=== PATIENT | female | born 1940 | race Caucasian/White ===

== ENCOUNTER → 2017-02-23 | Outpatient (CLI) | payer MEDICARE | END | disposition home or self-care (01) | LOC: RAH 12:11 | PROVIDERS: ATTEND Internal Medicine | DX: R10.31 Right lower quadrant pain (principal); Z90.49 Acquired absence of other specified parts of digestive tract | CPT/HCPCS: 74176 ==

== ENCOUNTER → 2017-04-11 | Outpatient (CLI) | payer MEDICARE | END | disposition home or self-care (01) | LOC: OIH 11:38 | PROVIDERS: ATTEND Internal Medicine | DX: J18.0 Bronchopneumonia, unspecified organism (principal); M47.895 Other spondylosis, thoracolumbar region | CPT/HCPCS: 71046 ==